=== PATIENT | male | born 1980 | race Caucasian/White ===

== ENCOUNTER 2017-06-16 09:58 | Emergency (ER) | payer OTHER ==
[~2017-06-16] VITALS: Ht 193 cm; Wt 145.1 kg
[2017-06-16 09:58] VITALS: BP 139/85
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
--- NOTE | 2017-06-16 10:11 | NUR ---
Patient discharged to home in stable condition. Written and verbal after care instructions given. Patient verbalizes understanding of instruction.
== END 2017-06-16 10:08 ==
LOC: ER 10:00
DX: S00.83XA Contusion of other part of head, initial encounter (principal); Z98.890 Other specified postprocedural states; W22.8XXA Striking against or struck by other objects, initial encounter; Y93.89 Activity, other specified; Y92.89 Other specified places as the place of occurrence of the external cause; Y99.8 Other external cause status
CPT/HCPCS: 99283; A4606; Z7610